=== PATIENT | male | born 1975 | race Two or more races ===

== ENCOUNTER 2024-05-15 18:43 | Inpatient (IN) | payer MEDICAID ==
[~2024-05-15] VITALS: Ht 170.2 cm; Wt 65.8 kg
[2024-05-15] MEDS: IV NORMAL SALINE 1000 ML BAG IV ONE (19:00)
[2024-05-15] MEDS ORDERED: ASPIRIN 81 MG TAB.CHEW ONE (19:14)
[2024-05-15] MEDS: ASPIRIN 81 MG TAB.CHEW PO ONE (19:19)
[2024-05-15 19:26] LABS: BASOPHILS % (AUTO) 0.4 % (0.0-2.0); EOSINOPHILS % (AUTO) 0.1 % (0.0-7.0); HEMATOCRIT 51.4 % (36.7-47.1); HEMOGLOBIN 17.1 g/dL (12.5-16.3); LYMPHOCYTES # (AUTO) 0.3 K/uL (0.8-4.8); LYMPHOCYTES % (AUTO) 3.7 % (20.5-51.5); MEAN CORPUSCULAR HEMOGLOBIN 30.9 uug (23.8-33.4); MEAN CORPUSCULAR HGB CONC 33 g/dL (32.5-36.3); MEAN CORPUSCULAR VOLUME 92.9 fL (73.0-96.2); MONOCYTES # (AUTO) 0.4 K/uL (0.1-1.30); MONOCYTES % (AUTO) 4.8 % (0.0-11.0); NEUTROPHILS # (AUTO) 7.1 K/uL (1.8-8.9); PLATELET COUNT (AUTO) 190 K/uL (152-348); RED BLOOD CELL COUNT(AUTO) 5.53 MIL/uL (4.06-5.63); RED CELL DISTRIBUTION WIDTH 16.3 % (12.1-16.2); WHITE BLOOD COUNT (AUTO) 7.8 K/uL (3.6-10.2)
[2024-05-15] MEDS ORDERED: DILTIAZEM HCL 25 MG IV ONE ×2 (19:28→20:01)
[2024-05-15] MEDS: DILTIAZEM HCL 25 MG IV IV ONE (19:30)
[2024-05-15 19:31] LABS: DIFFERENTIAL COMMENT 1
[2024-05-15 19:34] LABS: CALCIUM 10.4 mg/dL (8.5-10.1); CARBON DIOXIDE 23 mmol/L (21-32); CHLORIDE 98 mmol/L (98-107); CREATININE 2.4 mg/dL (0.6-1.3); GLUCOSE 107 mg/dL (74-106); POTASSIUM 3.9 mmol/L (3.5-5.1); SODIUM SERUM 146 mmol/L (136-145); UREA NITROGEN, BLOOD 22 mg/dL (7-18)
[2024-05-15 19:47] LABS: ALANINE AMINOTRANSFERASE 80 U/L (16-63); ALBUMIN 5.5 g/dL (3.4-5.0); ALKALINE PHOSPHATASE 91 U/L (50-136); ASPARTATE AMINOTRANSFERASE 75 U/L (15-37); BILIRUBIN,DIRECT 0.7 mg/dL (0.0-0.2); BILIRUBIN,TOTAL 3.1 mg/dL (0.2-1.0); NT-PRO BNP 191 pg/mL (0-125); TOTAL PROTEIN, SERUM 9.9 g/dL (6.4-8.2)
[2024-05-15] MEDS ORDERED: DILTIAZEM HCL 50 MG IV ONE (20:01)
[2024-05-15] MEDS: DILTIAZEM HCL IV 125 MG in IV NORMAL SALINE 100 ML IV PRN (20:20)
[2024-05-15 21:14] LABS: *BILIRUBIN,URIN 1+ (NEGATIVE); *CLARITY,URINE CLEAR (CLEAR); *KETONES,URINE 1+ (NEGATIVE); *PROTEIN,URINE 2+ (NEGATIVE); LEUKOCYTE ESTERASE ,URINE NEGATIVE (NEGATIVE); NITRITE, URINE NEGATIVE (NEGATIVE); PH,URINE 5.5 (5.0-8.0); UGLUCOSE NEGATIVE (NEGATIVE)
[2024-05-15 21:15] LABS: *BLOOD, URINE TRACE (NEGATIVE)
[2024-05-15 21:17] LABS: *COLOR,URINE DARK YELLOW (YELLOW)
[2024-05-15] MEDS ORDERED: AMIODARONE HCL IV 450 MG in IV DEXTROSE 5% 250 ML IV PRN (21:30)
[2024-05-15 21:31] LABS: *AMPHETAMINE, URINE NEGATIVE (NEGATIVE); *BARBITURATE, URINE NEGATIVE (NEGATIVE); *BENZODIAZEPINE, URINE NEGATIVE (NEGATIVE); *CANNABINOID, URINE NEGATIVE (NEGATIVE); *COCCAINE, URINE NEGATIVE (NEGATIVE); *OPIATE, URINE NEGATIVE (NEGATIVE); *PHENCYCLIDINE SCREEN,URINE NEGATIVE (NEGATIVE); FENTANYL, URINE NEGATIVE (NEGATIVE)
[2024-05-15 21:34] LABS: BACTERIA,URINE FEW /HPF (NONE SEEN); RBC,URINE 0-3 /HPF (0-3); SQUAMOUS EPITHELIAL CELL,UR FEW /HPF (NONE SEEN); WBC,URINE 0-3 /HPF (0-3)
[2024-05-15] MEDS ORDERED: ONDANSETRON 4 MG/2 ML VIAL IV PRN (23:30)
[2024-05-15] MEDS ORDERED: MAGNESIUM HYDROXIDE 30 ML LIQUID UDC PO PRN (23:30)
[2024-05-15 23:41] VITALS: BP 119/77; TEMP 98.6; O2SAT 96
[2024-05-16] MEDS: ACETAMINOPHEN 325 MG TABLET PO PRN (00:06)
[2024-05-16] MEDS: IV LACTATED RINGERS SOLUTION 1,000 ML IV PRN (00:21)
[2024-05-16] MEDS: NITROGLYCERIN OINT 1 GM PACKET TP PRN (05:52)
[2024-05-16] MEDS: PANTOPRAZOLE SODIUM 40 MG TABLET.DR PO SCH (06:03)
[2024-05-16 06:07] VITALS: BP 118/76; TEMP 98.5; O2SAT 96
[2024-05-16 07:06] LABS: BASOPHILS # (AUTO) 0.1 K/UL (0.0-0.2); BASOPHILS % (AUTO) 0.9 % (0.0-2.0); EOSINOPHILS % (AUTO) 0.2 % (0.0-7.0); HEMATOCRIT 44.2 % (36.7-47.1); HEMOGLOBIN 14.6 g/dL (12.5-16.3); LYMPHOCYTES # (AUTO) 0.9 K/uL (0.8-4.8); LYMPHOCYTES % (AUTO) 15.8 % (20.5-51.5); MEAN CORPUSCULAR HEMOGLOBIN 31.1 uug (23.8-33.4); MEAN CORPUSCULAR HGB CONC 33 g/dL (32.5-36.3); MEAN CORPUSCULAR VOLUME 94.4 fL (73.0-96.2); MONOCYTES # (AUTO) 0.8 K/uL (0.1-1.30); MONOCYTES % (AUTO) 13.1 % (0.0-11.0); NEUTROPHILS # (AUTO) 4.1 K/uL (1.8-8.9); PLATELET COUNT (AUTO) 143 K/uL (152-348); RED BLOOD CELL COUNT(AUTO) 4.68 MIL/uL (4.06-5.63); RED CELL DISTRIBUTION WIDTH 16.6 % (12.1-16.2); WHITE BLOOD COUNT (AUTO) 5.8 K/uL (3.6-10.2)
[2024-05-16 07:42] VITALS: BP 146/85; TEMP 97.2; O2SAT 97
[2024-05-16 07:45] LABS: DIFFERENTIAL COMMENT 1
[2024-05-16 08:01] LABS: ALBUMIN 4.2 g/dL (3.4-5.0); BILIRUBIN,DIRECT 0.6 mg/dL (0.0-0.2); BILIRUBIN,TOTAL 3.9 mg/dL (0.2-1.0); CALCIUM 8.9 mg/dL (8.5-10.1); MAGNESIUM 2.7 mg/dL (1.8-2.4); PHOSPHOROUS 2.9 mg/dL (2.5-4.9); POTASSIUM 3.9 mmol/L (3.5-5.1); TOTAL PROTEIN, SERUM 7.8 g/dL (6.4-8.2)
[2024-05-16 12:00] VITALS: BP 130/73; TEMP 97.7; O2SAT 99
[2024-05-16 16:22] VITALS: BP 149/61; TEMP 98.4; O2SAT 97
[2024-05-16 19:19] LABS: THYROID STIMULATING HORMONE 1.863 mIU/mL (0.358-3.740)
== END 2024-05-16 16:15 | disposition home or self-care (01) | DRG 422 ==
LOC: ER 19:55 → TELE3 22:32
PROVIDERS: ADMIT Nurse Practitioner Family; ATTEND Nurse Practitioner Family
DX: E86.0 Dehydration (principal); E86.1 Hypovolemia; N17.9 Acute kidney failure, unspecified; I48.91 Unspecified atrial fibrillation; F10.10 Alcohol abuse, uncomplicated; X30.XXXA Exposure to excessive natural heat, initial encounter; Y93.H3 Activity, building and construction; Y92.61 Building [any] under construction as the place of occurrence of the external cause; Y99.0 Civilian activity done for income or pay
CPT/HCPCS: 36415; 70450; 71045; 72125; 76700; 83735; 84100; 84443; 84484; 85025; 93005; 93307; A4606; A4663; G0378; G0480; J2405; J3490; J7040; J7120